=== PATIENT | male | born 2000 | race Caucasian/White ===

== ENCOUNTER 2022-02-25 09:18 | Emergency (ER) | payer OTHER ==
[~2022-02-25] VITALS: Ht 177.8 cm; Wt 63.6 kg
[2022-02-25 09:19] VITALS: BP 142/67
[2022-02-25] MEDS ORDERED: DAYQUIL PO (09:28)
[2022-02-25] MEDS ORDERED: PENI500T PO (11:05)
== END 2022-02-25 11:13 | disposition home or self-care (01) ==
LOC: M ED 09:18
DX: J02.0 Streptococcal pharyngitis (principal)